=== PATIENT | male | born 1980 | race African-American/Black ===

== ENCOUNTER 2016-12-23 20:18 | Emergency (ER) | payer SELFPAY ==
--- NOTE | 2016-12-23 20:57 | ED Physician Documentation ---
Headache - HISTORIAN Historian: patient - HPI Stated Complaint: Migraine FRAGA Chief Complaint: Headache Additional Information: started today, similar to other migraines Onset: hours (2) Timing: abrupt, still present New Gradual Onset: Yes Exposure To: none Severity: moderate Quality: similar to previous Associated Symptoms: sensitivity to light, nausea Preceding Symptoms: denies: visual disturbance, scotoma Exacerbated By: light Further Comments: no - ROS NEURO/PSYCH: denies: confusion, anxiety, depression, fainting EYES/ENT: denies: sore throat, difficulty swallowing, sinus pain, drainage CVS/RESP: none GI/: denies: abdominal pain, diarrhea, problems urinating, incontinence MS/SKIN/LYMPH: denies: muscle aches, back pain, rash, skin lesions, swollen glands - PAST HX Medical History: other (migraines) Surgical History: no surgical history Immunizations: referred to PCP Allergies/Adverse Reactions: Allergies Allergy/AdvReac Type Severity Reaction Status Date / Time Penicillins Allergy Severe Anaphylaxis Verified 12/23/16 20:33 amoxicillin Allergy Verified 12/23/16 20:33 Home Medications: Ambulatory Orders Medication Instructions Recorded NK [NK] 06/05/16 - SOCIAL HX Smoking History: cigarettes Alcohol Use: occasionally Drug Use: none - Family HX Family History: none - VITAL SIGNS Vital Signs: Vital Signs Temp Pulse Resp BP Pulse Ox 97.8 F 50 L 14 117/68 99 12/23/16 20:19 12/23/16 20:19 12/23/16 20:19 12/23/16 20:19 12/23/16 20:19 - REVIEWED ASSESSMENTS Nursing Assessment Reviewed: No Vitals Reviewed: No Progress - Results/Orders Results/Orders: no testing ordered - Progress Progress: pt. given 6 mg imitrex sq, 60 mg toradol im and 25 mg phenergan im in er Critical Care Note - Critical Care Note Total Time (mins): 0 ED Results Lab/Radiology - Lab Results Lab Results: none taken - Radiology Radiology Impressions: none taken - Orders Orders: ED Orders Category Date Time Status Ketorolac Tromethamine [Toradol] Med 12/23/16 20:45 Once 60 mg IM NOW ONE Promethazine HCl [Phenergan] Med 12/23/16 20:45 Once 25 mg IM NOW ONE SUMAtriptan SUCCINATE [Imitrex] Med 12/23/16 20:45 Once 6 mg SQ NOW ONE Headache Physical Exam - EXAM General Appearance: alert, moderate distress EENT: no facial swelling, PERRL, tender temporal artery, photophobia. No: pain over sinuses Neck: normal inspection, thyroid normal, supple. No: thyromegaly, lymphadenopathy, stiff neck Respiratory: no resp distress, chest non-tender, breath sounds normal CVS: reg. rate & rhythm, heart sounds nml Abdomen: non-tender, no organomegaly, nml bowel sounds, no distention Skin: color nml, no rash. No: cyanosis Extremitites: non-tender, normal range of motion, no evidence of injury, no edema - NEURO/PSYCH Higher Functions: alert, oriented x3, nml speech, mood/affect nml Cranial: nml as tested, no evidence of acute CVA Cerebellar: nml as tested Sensorimotor: motor nml, sensation nml Discharge Clincal Impression: Migraine Qualifiers: Migraine type: without aura Status migrainosus presence: without status migrainosus Intractability: intractable Qualified Code(s): G43.019 - Migraine without aura, intractable, without status migrainosus Referrals: Primary Doctor,No [Primary Care Provider] - 2 Days Home Medications: Ambulatory Orders NK [NK] 06/05/16 Comments: discharged in stable condition with script for imitrex 100 mg 1 p.o. at onset of headache, may repeat x 1 in 2 hours prn. Max dose 2 in 24 hours. Condition: Stable Disposition: 01 HOME, SELF-CARE Decision to Admit: NO Decision Time: 20:50
[2016-12-23] MEDS: PROMETHAZINE HCL 25 MG/ML VIAL IM ONE (21:01)
[2016-12-23] MEDS: KETOROLAC TROMETHAMINE 60 MG/2 ML VIAL IM ONE (21:01)
[2016-12-23] MEDS: SUMAtriptan SUCCINATE 6 MG/0.5 ML VIAL SQ ONE (21:01)
[2016-12-23 21:15] VITALS: BP 118/64
== END 2016-12-23 21:05 | disposition home or self-care (01) ==
LOC: ED 20:18
DX: G43.019 Migraine without aura, intractable, without status migrainosus (principal)
CPT/HCPCS: J1885; J2550; J3030; 96372; 99283

== ENCOUNTER 2017-08-24 09:49 | Emergency (ER) | payer SELFPAY ==
--- NOTE | 2017-08-24 11:08 | ED Physician Documentation ---
Ear Complaints - HISTORIAN Historian: patient - HPI Stated Complaint: left ear pain Chief Complaint: Ear Complaints Timing: still present, worse Further Comments: yes (37 year old male patient presents with complaint of left ear pain x 3 days. Patient states he has been using tylenol at home. Reports nasal congestion and sore throat.) - ROS CONST: no problems CVS/RESP: none GI/: denies: nausea, vomiting MS/SKIN/LYMPH: none NEURO/PSYCH: denies: weakness - PAST HX Past History: none Allergies/Adverse Reactions: Allergies Allergy/AdvReac Type Severity Reaction Status Date / Time Penicillins Allergy Severe Anaphylaxis Verified 08/24/17 10:33 amoxicillin Allergy Verified 08/24/17 10:33 shellfish derived Allergy Verified 08/24/17 12:49 Home Medications: Ambulatory Orders Medication Instructions Recorded NK [NK] 06/05/16 - SOCIAL HX Smoking History: cigarettes - FAMILY HX Family History: No - VITAL SIGNS Vital Signs: Vital Signs Temp Pulse Resp BP Pulse Ox 98.3 F 82 20 151/95 96 08/24/17 09:49 08/24/17 09:49 08/24/17 09:49 08/24/17 09:49 08/24/17 09:49 - REVIEWED ASSESSMENTS Nursing Assessment Reviewed: Yes Vitals Reviewed: Yes Progress - Progress Progress: Attempted to remove impaction with ear loop, patient unable to tolerate the pain. Irrigated - unable to completely remove impaction due to pain. left oropharynx with significant edema noted, will obtain CT soft tissue neck to r/o peritonsilar abscess. Patient with allergy to shellfish, will not use contrast, allergy caused difficulty breathing and "swelling" at age 12. [address] from [address] Cleaning - reviewed CT findings. [address] results with patient, recommended transfer to [facility] for ENT consult. [address] Barnett to ER for evaluation, orders for Clindamycin IV ED Results Lab/Radiology - Radiology Radiology Impressions: Examination: CT neck History: STN W/O DUE TO ALLERGY TO SHELLFISH PATIENT STATES SWELLING BACK/UNDER TONGUE LEFT SIDE AND THROAT X 3 DAYS (Hx) / EDEMA SOFT TISSUE PHARNYX (DICOM Hx) Comparison exams: None provided Technique: CT neck with contrast Findings: Significant swelling involving the left tonsillar region. Suggestion for a faint low density region centrally measuring approximately 6 mm. Streak artifact from dental hardware limits sensitivity visualizing the central aspect of this area. Prominent pre vertebral adenoid tissue. Parotid and submandibular glands are without abnormality.No pathologic adenopathy involving the carotid, jugular and posterior cervical chain regions. Oropharynx is narrowed and shifted to the right. Lower neck structures including thyroid gland are without abnormality. Apical lung joel and osseous structures are within normal limits. Skull base structures including brain parenchyma are without abnormality. Impression: Significant left oropharynx soft tissue fullness/edema. Suggestion for low density area centrally possibly representing peritonsillar abscess. Exam sensitivity is limited due to inability to administer contrast as well as streak artifact from dental hardware. ENT consultation recommended. Discussed findings with Dr. Moore at 1300 hours on 24 August 2017 CDT Electronically signed on Aug 24, 2017 1:03:02 PM POISER BALANCE by: Yonis Cleaning - Orders Orders: ED Orders Category Date Time Status Irrigate Ear 1T Care 08/24/17 10:56 Active Rapid Strep [GRP A STREP SCREEN] Stat Lab 08/24/17 10:19 Ordered Ear Complaint Physical Exam - EXAM General Appearance: moderate distress, other (muffled, hot potato voice noted) Ear: left, cerumen (impaction left ear) Mouth/Throat: lips nml, gums nml, pharyngeal erythema (significant edema noted in left oropharynx) Nose: nml inspection Head/Neck: atraumatic, neck swelling (left - tonsilar, submandibular, submental and anterior cervical lymph chains with edema noted. ) Resp/CVS: chest non-tender, breath sounds nml, heart sounds nml Abdomen: non-tender, no organomegaly Skin: nml color, no skin rash Neuro/Psych: oriented x3, mood/affect nml Discharge Clincal Impression: Peritonsillar abscess, Impacted cerumen of left ear Leukocytosis Qualifiers: Leukocytosis type: bandemia Qualified Code(s): D72.825 - Bandemia Referrals: Primary Doctor,No [Primary Care Provider] - 2 Days Condition: Serious Disposition: 02 XFER SHT-TRM HOSP Decision to Admit: NO Decision Time: 13:15
[2017-08-24 12:22] LABS: BASOPHILS % 0.3 (0.0-1.5); EOSINOPHILS % 1.8 % (0.0-6.8); MEAN CORPUSCULAR HEMOGLOBIN 28.5 pg (28.0-34.0); MEAN CORPUSCULAR VOLUME 89.4 fl (80.0-100.0); MONOCYTES % 3.8 % (0.0-11.0); NEUTROPHILS # 14.3 # k/uL (1.4-7.7)
[2017-08-24 12:53] LABS: eGFR (African) > 60; eGFR (Non-African) > 60
[2017-08-24] MEDS ORDERED: methylPREDNISolone SOD SUCC 125 MG/2 ML VIAL IVP ONE (13:10)
[2017-08-24] MEDS ORDERED: CLINDAMYCIN PHOSPHATE 600 MG in 0.9 % SODIUM CHLORIDE 100 ML IV ONE (13:18)
[2017-08-24] MEDS ORDERED: CLINDAMYCIN PHOSPHATE 300 MG/2 ML VIAL ONE ×2 (13:27→13:34)
[2017-08-24] MEDS ORDERED: 0.9 % SODIUM CHLORIDE 100 ML IV ONE (13:36)
[2017-08-24 14:51] VITALS: BP 134/74
--- NOTE | 2017-08-24 15:31 | Diagnostic Imaging Report ---
CHRISTIAN BROWNE (CONTEMPORARY OR MODERN DANCER) - ER [facility] [id number] [facility] [address] [place], [place]. [address] Report Submission Date: Aug 24, 2017 1:03:02 PM CORPORATE TRAFFIC MANAGER Patient Study Name: RANJEET DENG Date: Aug 24, 2017 12:25:38 PM CORPORATE TRAFFIC MANAGER Modality Type: CT\SR Gender: M Description: CT STN W/O : 80 Institution: [facility] Physician: CHRISTIAN BROWNE (CONTEMPORARY OR MODERN DANCER) - ER Examination: CT neck History: STN W/O DUE TO ALLERGY TO SHELLFISH PATIENT STATES SWELLING BACK/UNDER TONGUE LEFT SIDE AND THROAT X 3 DAYS (Hx) / EDEMA SOFT TISSUE PHARNYX (DICOM Hx ) Comparison exams: None provided Technique: CT neck with contrast Findings: Significant swelling involving the left tonsillar region. Suggestion for a faint low density region centrally measuring approximately 6 mm. Streak artifact from dental hardware limits sensitivity visualizing the central aspect of this area. Prominent pre vertebral adenoid tissue. Parotid and submandibular glands are without abnormality.No pathologic adenopathy involving the carotid, jugular and posterior cervical chain regions. Oropharynx is narrowed and shifted to the right. Lower neck structures including thyroid gland are without abnormality. Apical lung joel and osseous structures are within normal limits. Skull base structures including brain parenchyma are without abnormality. Impression: Significant left oropharynx soft tissue fullness/edema. Suggestion for low density area centrally possibly representing peritonsillar abscess. Exam sensitivity is limited due to inability to administer contrast as well as streak artifact from dental hardware. ENT consultation recommended. Discussed findings with Dr. Browne at 1300 hours on 24 August 2017 CDT Electronically signed on Aug 24, 2017 1:03:02 PM CORPORATE TRAFFIC MANAGER by: Yonis BAIG
== END 2017-08-24 14:15 | disposition short-term general hospital (02) ==
LOC: ED 09:49
DX: J36 Peritonsillar abscess (principal); H61.22 Impacted cerumen, left ear; D72.825 Bandemia; F17.210 Nicotine dependence, cigarettes, uncomplicated
CPT/HCPCS: 70490; 80048; 85025; 87070; 87880; J2930; J3490; 96365; 96375; 99283; S1016

== ENCOUNTER 2018-08-17 20:00 | Emergency (ER) | payer SELFPAY ==
[2018-08-17] MEDS ORDERED: CLINDAMYCIN HCL 150 MG CAPSULE PO ONE (20:26)
[2018-08-17] MEDS ORDERED: traMADol HCL 50 MG TABLET PO ONE (20:26)
--- NOTE | 2018-08-17 20:30 | ED Physician Documentation ---
Sore Throat/Dental Pain - HISTORIAN Historian: patient - HPI Stated Complaint: dental pain Chief Complaint: Dental Pain Additional Information: Patient presents to ED with a 2 day history of worsening right upper dental pain. Patient states he had a tooth extracted 3 years ago and 2 days ago he began to have pain and swelling at the gum where the tooth was extracted. Onset: days ago (2) Context: Dental Caries, Possible Infection Associated Symptoms: denies: fever, sore throat - ROS CONST: no problems CVS/RESP: none GI/: denies: nausea, vomiting MS/SKIN/LYMPH: denies: muscle aches - PAST HX Past History: gum disease Other History: none Allergies/Adverse Reactions: Allergies Allergy/AdvReac Type Severity Reaction Status Date / Time Penicillins Allergy Severe Anaphylaxis Verified 08/24/17 10:33 amoxicillin Allergy Verified 08/24/17 10:33 shellfish derived Allergy Verified 08/24/17 12:49 Home Medications: Ambulatory Orders Medication Instructions Recorded NK 06/05/16 - SOCIAL HX Smoking History: cigarettes Alcohol Use: occasionally Drug Use: marijuana - FAMILY HX Family History: No - VITAL SIGNS Vital Signs: Vital Signs Temp Pulse Resp BP Pulse Ox 134/74 08/24/17 14:47 - REVIEWED ASSESSMENTS Nursing Assessment Reviewed: Yes Vitals Reviewed: Yes ED Results Lab/Radiology - Orders Orders: ED Orders Category Date Time Status Clindamycin HCl [Cleocin] Med 08/17/18 20:26 Once 300 mg PO NOW ONE traMADol HCL [Ultram] Med 08/17/18 20:26 Once 50 mg PO NOW ONE Dental Pain Physical Exam - EXAM General Appearance: no acute distress, alert Head/Neck: head nml inspection Eyes: PERRL Mouth/Throat: dental tenderness, gum swelling around teeth Ear/Nose: nml inspection Respiratory: no resp. distress, breath sounds nml, respiratory distress CVS: reg. rate & rhythm, heart sounds nml Abdomen: soft, normal bowel sounds Extremities: non-tender Skin: warm/dry Neuro/Psych: none Discharge Clincal Impression: Dental abscess Referrals: Primary Doctor,No [Primary Care Provider] - 2 Days Additional Instructions: 1. Tylenol and/or Ibuprofen as needed for pain 2. Tramadol as needed for break through pain 3. 1 tsp salt and 1 tsp baking soda in warm water. Rinse mouth after each meal 4. Take Clindamycin as directed 5. Follow up with Dentist as soon as possible 6. Return to ER with new or worsening symptoms. Condition: Stable Disposition: 01 HOME, SELF-CARE Decision to Admit: NO Date of Decison to Admit: 08/17/18 Decision Time: 20:35
[2018-08-17 21:38] VITALS: BP 155/98
== END 2018-08-17 20:50 | disposition home or self-care (01) ==
LOC: ED 20:00
DX: K04.7 Periapical abscess without sinus (principal)
CPT/HCPCS: 99282

== ENCOUNTER 2019-02-15 05:00 | Emergency (ER) | payer SELFPAY ==
[2019-02-15 05:34] VITALS: BP 120/82
--- NOTE | 2019-02-15 06:00 | ED Physician Documentation ---
Lower Extremity Injury - HISTORIAN Historian: patient - HPI Stated Complaint: Fell on Rt knee couple days prior Chief Complaint: Lower Extremity Injury Onset: days ago (4) Where: home Severity: mild Context: direct blow Associated Symptoms:: tingling Modifying Factors:: pain on movement - ROS CONST: no problems - PAST HX Past History: none Immunizations: UTD Allergies/Adverse Reactions: Allergies Allergy/AdvReac Type Severity Reaction Status Date / Time Penicillins Allergy Severe Anaphylaxis Verified 02/15/19 05:35 amoxicillin Allergy Verified 02/15/19 05:35 shellfish derived Allergy Verified 02/15/19 05:35 Home Medications: Ambulatory Orders Medication Instructions Recorded NK 06/05/16 - SOCIAL HX Smoking History: cigarettes Alcohol Use: none Drug Use: none - FAMILY HX Family History: none - VITAL SIGNS Vital Signs: Vital Signs Temp Pulse Resp BP Pulse Ox 54 L 14 120/82 100 02/15/19 05:01 02/15/19 05:01 02/15/19 05:01 02/15/19 05:01 - REVIEWED ASSESSMENTS Nursing Assessment Reviewed: Yes Vitals Reviewed: Yes ED Results Lab/Radiology - Radiology Radiology Impressions: 3 views right knee Clinical history: pain Findings: No acute fracture dislocation is identified. The alignment is normal. Joint spaces are maintained. No joint effusion. Impression: Negative Electronically signed on Feb 15, 2019 6:43:41 AM CDT by: Saud Franco - Orders Orders: ED Orders Category Date Time Status XR KNEE 3 VIEWS [KNEE 3 VIEWS] [RAD] Stat Exams 02/15/19 Taken Ketorolac Tromethamine [Toradol] Med 02/15/19 06:33 Once 60 mg IM NOW ONE Lower Extremities Injury Phy - Physical Exam General Appearance: no acute distress, alert Hips: bilateral hip: non-tender, normal inspection, normal range of motion, no evidence of injury Knees: right: bone tenderness, pain, left: non-tender, normal inspection, normal range of motion, no evidence of injury, bilateral: deformity, soft tissue tenderness, swelling Ligaments: pain on anterior drawer Gait: normal, limited by pain, unable to bear weight Neuro/Vascular/Tendon: no vascular compromise Neck/Back: nml inspection Resp/CVS: chest non-tender, breath sounds nml, heart sounds nml, no resp. distress, lungs clear, reg. rate & rhythm Abdomen: non-tender Discharge Clincal Impression: Knee pain Qualifiers: Chronicity: acute Laterality: right Qualified Code(s): M25.561 - Pain in right knee Referrals: Primary Doctor,No [Primary Care Provider] - 2 Days Comments: 1. OTC meds as directed for pain as needed 2. Follow up with PCP if pain continues in 2-4 days 3. Return to ER for any increasing concerns Condition: Stable Disposition: 01 HOME, SELF-CARE Decision to Admit: NO Date of Decison to Admit: 02/15/19 Decision Time: 06:58
[2019-02-15] MEDS ORDERED: KETOROLAC TROMETHAMINE 60 MG/2 ML VIAL IM ONE (06:33)
--- NOTE | 2019-02-15 07:04 | Diagnostic Imaging Report ---
ENMANUEL ROWLAND [facility] [address] [facility] [address] [facility] [address] [place], [place]. [address] Report Submission Date: Feb 15, 2019 6:43:41 AM CDT Patient Study Name: RANJEET ANDERSON Date: Feb 15, 2019 5:33:08 AM CDT Modality Type: DX Gender: M Description: KNEE 3 VIEWS : 80 Institution: [facility] Physician: ENMANUEL ROWLAND 3 views right knee Clinical history: pain Findings: No acute fracture dislocation is identified. The alignment is normal. Joint spaces are maintained. No joint effusion. Impression: Negative Electronically signed on Feb 15, 2019 6:43:41 AM CDT by: Saud BAIG
== END 2019-02-15 07:05 | disposition home or self-care (01) ==
LOC: ED 05:00
DX: M25.561 Pain in right knee (principal); W19.XXXA Unspecified fall, initial encounter; Y99.8 Other external cause status
CPT/HCPCS: 73562; 96372; 99282; 99283; J1885